=== PATIENT | female | born 1965 | race Caucasian/White ===

== ENCOUNTER 2016-07-01 11:29 | Day surgery (SDC) | payer OTHER ==
[~2016-07-01] VITALS: Ht 160 cm; Wt 88.4 kg
[~2016-07-01 11:29] MED LIST: ACTOS30 MG PO; CRESTOR10 MG PO; GLUCOPHAGE500 MG PO; JANUVIA100 MG PO; VOLTAREN-XR100 MG PO; ZESTORETIC 20-1 EAC2 PO
[2016-07-01 12:03] LABS: POINT-OF-CARE METER ID UU14174212
[2016-07-01 12:18] VITALS: BP 137/70
[2016-07-01 15:46] VITALS: BP 112/66
[2016-07-05 13:10] LABS: INTERNAL CONTROL VALID? YES
== END 2016-07-01 16:16 | disposition home or self-care (01) ==
LOC: SDC 11:29
PROVIDERS: Podiatrist Foot & Ankle Surgery
DX: M20.41 Other hammer toe(s) (acquired), right foot (principal); M24.574 Contracture, right foot; E11.9 Type 2 diabetes mellitus without complications; I10 Essential (primary) hypertension; F17.200 Nicotine dependence, unspecified, uncomplicated; E66.01 Morbid (severe) obesity due to excess calories; Z68.41 Body mass index [BMI] 40.0-44.9, adult; Z79.84 Long term (current) use of oral hypoglycemic drugs; Z82.49 Family history of ischemic heart disease and other diseases of the circulatory system; Z80.3 Family history of malignant neoplasm of breast; Z83.3 Family history of diabetes mellitus; Z79.82 Long term (current) use of aspirin; Z88.2 Allergy status to sulfonamides
CPT/HCPCS: 82948; 84703; C1769; J0131; J0690; J1100; J1885; J2250; J3010; S0020